=== PATIENT | female | born 1940 | race Caucasian/White ===

== ENCOUNTER 2017-05-12 10:59 | Emergency (ER) | payer MEDICARE, OTHER, MEDICAID ==
[~2017-05-12 10:59] MED LIST: ACID REDUCER150 MG PO; ALPRAZOLAM0.5 M3 PO; ALPRAZOLAM0.5 MG PO; AMARYL4 M1 PO; AMARYL4 MG PO; ANTIVERT25 M1 PO; ASPIRIN81 M1 PO; ATENOLOL100 MG PO; ATENOLOL50 MG PO; CARAFATE1 G2 PO; CELEXA10 MG PO; CELEXA20 MG PO; CELEXA40 M2 PO; CELEXA40 MG PO; CIPRO500 M2 PO; CIPRO500 MG PO; CITRUCEL PO; COZAAR100 M1 PO; COZAAR25 M1 PO; DESYREL50 MG PO; FENOFIBRATE145 M2 PO; FENOFIBRATE54 M1 PO; FENOFIBRATE54 MG PO; GLIMEPIRIDE4 MG PO; GLUCAGEN1 MG/1 ML IM; GLUCOPHAGE500 MG PO; HYZAAR 100-251 EACH PO; KEPPRA500 M3 PO; LEVEMIR FL100 UNIT/2 SC; LEVEMIR100 U/ML SC; LEVEMIR100 U/ML SQ; LEVEMIR100 UNITS/ SC; LEVSIN0.125 M1 PO; LISINOPRIL-HC PO; LOSARTAN-HCTZ1 EAC1 PO; MECLIZINE HCL25 M3 PO; MELATONIN1 MG PO; METFORMIN HCL500 MG PO; NAMENDA XR28 M1 PO; NEURONTIN100 M1 PO; NIFEDICAL PO; NIFEDICAL XL30 M1 PO; NIFEDICAL XL30 MG PO; NIFEDIPINE PO; NORCO 5/325 TAB1 TAB PO; NORCO 5/3251 TAB PO; NORVASC5 M2 PO; NOVOFINE 321 EACH; NOVOLOG; NOVOLOG FL100 UNIT/2 SC; NOVOLOG100 UNIT/1 SC; NOVOLOG100 UNIT/1 SQ; NOVOLOG100 UNITS/ SC; NYSTATIN15 G1 TOP; NYSTATIN15 G1 TP; OMEPRAZOLE20 M3 PO; OMEPRAZOLE40 M2 PO; PLAVIX75 M1 PO; PRAVACHOL40 MG PO; PRAVACHOL80 M1 PO; PRAVACHOL80 MG PO; PRILOSEC20 MG PO; PYRIDIUM200 MG PO; RANITIDINE HCL150 MG PO; REMERON15 M1 PO; REMERON15 MG PO; ROXICODONE5 M2 PO; SEROQUEL X200 MG/TAB PO; SEROQUEL200 M1 PO; SEROQUEL25 MG PO; SEROQUEL50 M1 PO; SEROQUEL50 MG PO; TENORMIN100 M1 PO; TENORMIN100 MG PO; TENORMIN50 MG PO; TOPAMAX50 M3 PO; TOPRIMATE PO; TRAZODONE HCL150 M1 PO; TRAZODONE50 MG PO; TUMS; TUMS300 M1 PO; TYLENOL325 M2 PO; VITAMIN D; VITAMIN D50000 UNI2 PO; XANAX0.25 MG PO; ZANTAC15 PO; ZANTAC150 M1 PO; ZANTAC150 MG PO; ZESTORETIC 10/11 TAB PO; ZITHROMAX250MG Z-PAK PO; ZOFRAN ODT4 MG/UDTAB PO; ZOFRAN4 M1 PO
[2017-05-12] MEDS ORDERED: CYCLOBENZAPRINE5 M1 PO ×2 (11:24)
[2017-05-12] MEDS ORDERED: VITAMIN D32000 UNI3 PO (11:26)
[2017-05-12] MEDS ORDERED: PROPRANOLOL HCL10 M1 PO (11:28)
[2017-05-12] MEDS ORDERED: ZZZQUIL50 MG/30 M PO (13:35)
[2017-05-12] MEDS ORDERED: MELATONIN10 M6 PO (13:35)
[2017-05-12] MEDS ORDERED: TYLENOL325 M2 PO (13:36)
[2017-05-12 13:49] LABS: BASO % 0.4 % (0-2); EOS % 1.3 % (0-7); EOSINOPHIL ABSOLUTE COUNT 0.1 tho/cmm (0.0-0.7); HGB-HEMOGLOBIN 10.1 gm/dl (12.0-15.5); IMMATURE GRANULOCYTES ABSOLUTE 0.02 tho/cmm (0-0.03); IMMATURE GRANULOCYTES PERCENT 0.2 % (0-0.3); LYMPH % 24.8 % (20-45); LYMPH ABSOLUTE COUNT 2.3 tho/cmm (0.8-4.5); MCH (MEAN CORPUSCULAR HGB) 30.7 pg (28.0-32.0); MCHC MEAN CORPUSCULAR HGB CONC 32.6 % (32.0-36.0); MCV (MEAN CELL VOLUME) 94.2 fl (82.0-96.0); MEAN PLATELET VOLUME 10.9 cmc (9.4-12.4); MONO % 7.2 % (0-12); MONOCYTE ABSOLUTE COUNT 0.7 tho/cmm (0.0-1.2); NEUTROPHIL ABSOLUTE COUNT 6.1 tho/cmm (1.6-8.0); NEUTROPHIL-AUTOMATED 6.1 tho/cmm (1.6-8.0); NEUTROPHILS % 66.1 % (40-80); PLATELET COUNT 327 tho/cmm (150-450); RED BLOOD COUNT 3.29 mil/cmm (4.00-5.20); WHITE BLOOD COUNT 9.2 tho/cmm (4.0-10.0)
[2017-05-12 13:57] LABS: ANION GAP 15 mmol/L (0-20); BLOOD UREA NITROGEN 34 mg/dl (6-24); CARBON DIOXIDE-VENOUS 23 mmol/L (22-32); CHLORIDE 101 mmol/l (96-110); CREATININE 1.61 mg/dl (0.50-1.10); GLUCOSE 94 mg/dL (70-110); POTASSIUM 4.9 mmol/L (3.7-5.1); SODIUM 134 mmol/L (135-145); eGFR VALUE FOR BLACK 35 mL/Min
[2017-05-12 14:07] LABS: URINE BILIRUBIN NEGATIVE (NEG); URINE BLOOD NEGATIVE (NEG); URINE GLUCOSE (UA) NEGATIVE (NEG); URINE KETONE NEGATIVE (NEG); URINE LEUKOCYTE ESTERASE POSITIVE (NEG); URINE NITRITE NEGATIVE (NEG); URINE PROTEIN NEGATIVE (NEG); URINE SPECIFIC GRAVITY 1.005 (1.003-1.030)
[2017-05-12 14:08] LABS: URINE APPEARANCE CLEAR; URINE COLOR YELLOW
[2017-05-12 14:10] LABS: URINE EPITHELIAL CELLS 0-2 /[HPF] (0-10); URINE RBC 0 /[HPF] (0-5); URINE WBC 0-2 /[HPF] (0-5)
[2017-05-12] MEDS ORDERED: CYCLOBENZAPRINE10 M1 PO (16:38)
[2017-05-12] MEDS ORDERED: NORCO 5-325 TA1 EACH PO (16:38)
== END 2017-05-12 16:47 ==
LOC: EDMED 10:59
PROVIDERS: Emergency Medicine
DX: M54.5 Low back pain (principal); E11.22 Type 2 diabetes mellitus with diabetic chronic kidney disease; I12.9 Hypertensive chronic kidney disease with stage 1 through stage 4 chronic kidney disease, or unspecified chronic kidney disease; N18.9 Chronic kidney disease, unspecified; F41.9 Anxiety disorder, unspecified; Z79.82 Long term (current) use of aspirin; Z79.84 Long term (current) use of oral hypoglycemic drugs; Z79.899 Other long term (current) drug therapy